=== PATIENT | male | born 1955 | race Caucasian/White ===

== ENCOUNTER 2023-03-18 11:58 | Emergency (ER) | payer MEDICARE ==
[~2023-03-18] VITALS: Ht 170.2 cm; Wt 86.4 kg
[~2023-03-18 11:58] MED LIST: ABILIFY 10MG TA10 MG PO; ASPI325T6 PO; ATIVAN 0.50.5 MG/TAB; ATORVASTATIN; COLACE 100100 MG/CAP; HUMULIN 70/3100 U/ML IJ; HUMULIN N 10100 U/ML; HUMULIN R 10100 U/ML; HYZAAR 25 MG-101 TAB; LORTAB 5/500 501 TAB PO; NORVASC 10MG10 MG PO; PERCOCET 5/321 UDTAB PO; PRINIVIL20 MG; PROZAC 20MG20 MG
[2023-03-18 12:09] VITALS: TEMP 97.9
[2023-03-18] MEDS ORDERED: NORCO 325 MG-51 TAB PO (14:30)
[2023-03-18 14:45] VITALS: BP 147/65; PULSE 56
== END 2023-03-18 14:45 | disposition home or self-care (01) ==
LOC: COL.ER 11:58
DX: M79.671 Pain in right foot (principal); M25.571 Pain in right ankle and joints of right foot; M79.89 Other specified soft tissue disorders; Z98.890 Other specified postprocedural states